=== PATIENT | male | born 1965 | race African-American/Black ===

== ENCOUNTER 2022-07-26 08:45 | Emergency (ER) | payer OTHER ==
[2022-07-26] MEDS ORDERED: HYDROcodone/Acetaminophen 5/325 mg Tablet ONE (09:24)
[2022-07-26] MEDS ORDERED: HYDROcodone/Acetaminophen 10/325 mg Tablet ONE (09:30)
[2022-07-26] MEDS ORDERED: Docusate 100 MG CAP PO SCH (09:45)
== END 2022-07-26 09:47 | disposition home or self-care (01) ==
LOC: CSHERS 08:45
DX: K64.5 Perianal venous thrombosis (principal); I10 Essential (primary) hypertension; F17.210 Nicotine dependence, cigarettes, uncomplicated
CPT/HCPCS: 99283

== ENCOUNTER 2023-05-22 22:14 | Emergency (ER) | payer OTHER ==
[2023-05-23 00:26] LABS: PTT 29.9 sec (22.0-33.0); Prothrombin Time 10.4 sec (9.5-12.1)
[2023-05-23 00:41] LABS: #Basophils 0.1 10x3/uL (0.0-0.2); #Eosinphils 0.3 10x3/uL (0.0-0.5); #Neutrophils 5.3 10x3/uL (1.5-8.4); %Basophils 0.9 % (0.0-2.0); %Eosinophils 3.2 % (0.0-6.0); %Lymphocytes 22.4 % (18.0-47.0); %Monocytes 11.1 % (0.0-10.0); %Neutrophils 61.1 % (40.0-75.0); Hematocrit 41.4 % (38.8-50.0); Hemoglobin 13.9 g/dL (13.5-17.5); Mean Corpuscular HGB CONC 33.6 g/dL (32.0-36.0); Mean Corpuscular Hemoglobin 30.9 pg (27.0-33.0); Mean Platelet Volume 12.5 fl (7.4-10.4); Platelet Count 85 10x3/uL (150-450); RBC Distribution Width 14.6 % (11.5-14.5); White Blood Cell (WBC) Count 8.6 10x3/uL (3.5-10.5)
[2023-05-23 00:58] LABS: Anisocytosis SLIGHT = 6-15 cells (100X) (0-5/hpf); Ovalocytes SLIGHT = 2-5 cells (100X) (0-1/hpf); Platelet Adequacy Comment Appears Decreased
[2023-05-23 01:12] LABS: Amphetamine Not Detected (NotDetected); Barbiturates Screen Not Detected (NotDetected); Benzodiazepine Screen Not Detected (NotDetected); Cocaine Metabolite Screen Not Detected (NotDetected); Methadone Not Detected (NotDetected); Methamphetamine Not Detected (NotDetected); Opiate Screen Not Detected (NotDetected); Oxycodone Screen Not Detected (NotDetected); Phencyclidine (PCP) Not Detected (NotDetected); THC/Cannabinoid Screen Not Detected (NotDetected); Tricyclic Screen Not Detected (NotDetected)
== END 2023-05-23 01:08 | disposition home or self-care (01) ==
LOC: CSHERS 22:14
DX: R04.0 Epistaxis (principal); D69.6 Thrombocytopenia, unspecified; I12.9 Hypertensive chronic kidney disease with stage 1 through stage 4 chronic kidney disease, or unspecified chronic kidney disease; N18.9 Chronic kidney disease, unspecified; E66.9 Obesity, unspecified; F17.210 Nicotine dependence, cigarettes, uncomplicated; Z60.5 Target of (perceived) adverse discrimination and persecution
CPT/HCPCS: 36415; 80306; 85025; 85610; 85730; 99283

== ENCOUNTER 2023-05-23 15:23 | Emergency (ER) | payer OTHER ==
[2023-05-23] MEDS ORDERED: Oxymetazoline HCl 0.05% ( 15 ML ) ONE (16:35)
[2023-05-23] MEDS ORDERED: Silver Nitrate Application 1 EACH ONE (17:31)
[2023-05-23 18:59] LABS: #Basophils 0.1 10x3/uL (0.0-0.2); #Eosinphils 0.3 10x3/uL (0.0-0.5); #Monocytes 0.8 10x3/uL (0.0-1.1); %Eosinophils 4.2 % (0.0-6.0); %Lymphocytes 26.8 % (18.0-47.0); %Neutrophils 56.4 % (40.0-75.0); Hematocrit 43.2 % (38.8-50.0); Hemoglobin 14.2 g/dL (13.5-17.5); Mean Corpuscular HGB CONC 32.9 g/dL (32.0-36.0); Mean Corpuscular Hemoglobin 30.3 pg (27.0-33.0); Mean Corpuscular Volume 92.3 fl (81.2-95.1); Mean Platelet Volume 12.8 fl (7.4-10.4); Platelet Count 78 10x3/uL (150-450); RBC Distribution Width 14.8 % (11.5-14.5); Red Blood Cell (RBC) Count 4.68 10x6/uL (4.32-5.72); White Blood Cell (WBC) Count 7.1 10x3/uL (3.5-10.5)
[2023-05-23] MEDS ORDERED: NIFEdipine XL 30 MG ER.TAB ONE (19:13)
[2023-05-23 19:27] LABS: ALT (SGPT) 12 U/L (8-55); AST (SGOT) 13 U/L (5-34); Albumin 3.7 g/dL (3.5-5.0); Alkaline Phosphatase 89 U/L (40-110); Anion Gap 14 mmol/L (10-20); BUN (Urea Nitrogen) 32 mg/dL (8.4-25.7); Bilirubin, Total 0.5 mg/dL (0.2-1.2); Calc. Creatinine Clearance 0 mL/min (70-130); Calcium 8.2 mg/dL (7.8-10.44); Carbon Dioxide 15 mmol/L (22-29); Chloride 111 mmol/L (98-107); Estimated GFR 21; Glucose 99 mg/dL (70-105); Potassium 5.1 mmol/L (3.5-5.1); Protein, Total 6.7 g/dL (6.0-8.3); Sodium 135 mmol/L (136-145)
== END 2023-05-23 19:42 | disposition home or self-care (01) ==
LOC: CSHERS 15:23
DX: R04.0 Epistaxis (principal); D69.6 Thrombocytopenia, unspecified; I12.9 Hypertensive chronic kidney disease with stage 1 through stage 4 chronic kidney disease, or unspecified chronic kidney disease; Z76.0 Encounter for issue of repeat prescription; F17.210 Nicotine dependence, cigarettes, uncomplicated; N18.9 Chronic kidney disease, unspecified; E66.9 Obesity, unspecified; Z60.5 Target of (perceived) adverse discrimination and persecution
CPT/HCPCS: 36415; 80053; 80306; 85025; 85610; 85730; 99283